=== PATIENT | male | born 1990 | race Two or more races ===

== ENCOUNTER 2024-09-26 20:26 | Emergency (ER) | payer OTHER ==
[~2024-09-26] VITALS: Ht 162.6 cm; Wt 81.6 kg
== END 2024-09-26 22:31 | disposition home or self-care (01) ==
LOC: ER 20:27
DX: B34.9 Viral infection, unspecified (principal); E11.9 Type 2 diabetes mellitus without complications; Z88.6 Allergy status to analgesic agent